=== PATIENT | male | born 1985 | race Caucasian/White ===

== ENCOUNTER 2019-09-06 14:19 | Emergency (ER) | payer MEDICAID, SELFPAY ==
[2019-09-06 14:20] VITALS: BP 142/76; PULSE 78; RESP 16; TEMP 36.6; O2SAT 96; BMI 25.0
--- NOTE | 2019-09-06 14:31 | EKG12_ITS ---
Test Reason : Blood Pressure : / mmHG Vent. Rate : 066 BPM Atrial Rate : 066 BPM P-R Int : 138 ms QRS Dur : 080 ms QT Int : 390 ms P-R-T Axes : -01 055 052 degrees QTc Int : 408 ms Normal sinus rhythm Junctional ST depression, probably normal Borderline ECG Confirmed by JELLY MCGREGOR ([id number]), editorial specialist ESTHER CARBAJAL ([id number]) on 09/09/2019 2:12:05 PM Referred By: LIZET Confirmed By:JELLY MCGREGOR
--- NOTE | 2019-09-06 14:40 | ED.VIS.GEN ---
History of Present Illness Chief Complaint: Substance Abuse Informant: Patient Narrative: Patient is a 33-year-old male with a past medical history of hypertension, psychiatric disorder who presents to the emergency department for detox. He states that he has been clean over the past 3 years until 3 weeks ago whenever he restarted methamphetamines. He wanted to come off this so he started what he believes was fentanyl. He has gone through withdrawal and detox before in the past. It is been multiple years since he has had to do this. He states that he has been nauseous and not able to eat. He is not able to remember the last time that he has slept. He denies any thoughts of harming himself or anybody else. Denies any other coingestions with the fentanyl that he has been injecting. He denies any issues with alcohol. He does smoke cigarettes. Denies any marijuana use. He has not any fevers or chills. No tremor. He states that he has been picking at his skin and does feel itchy. He has multiple abrasions over his back. Last time patient used was this morning with the fentanyl. He states that he does feel anxious. He denies any other significant chest pain, shortness of breath or abdominal pain. No headaches or vision changes. Capacity - Capacity Assessment Tool Can the patient make a choice & communicate that choice?: Yes Can the patient understand benefits, risks and alternatives?: Yes Can the patient make a logical, rational choice?: Yes Is the choice the patient makes consistent w/ their values?: Yes Is there an impending, emergent risk to the patient?: No Past Medical History - Allergies and Home Meds Allergies/Adverse Reactions: Allergies No Known Allergies Allergy (Verified 09/06/19 17:11) Primary Care Physician: Care Physician,No Primary [Primary Care Provider] - Prior records reviewed: Yes Past Medical History: - - Hypertension Smoking Status: Current every day smoker Drugs: - - Methamphetamine and fentanyl Review of Systems All systems negative except as indicated General: Reports: Malaise. Denies: Chills, Fever, Sweats Eyes: Denies: Visual changes - bilaterally, Diplopia ENT: Denies: Rhinorrhea, Sore throat Cardiovascular: Denies: Chest pain, Palpitations Respiratory: Denies: Dyspnea, Cough, Dyspnea on exertion Gastrointestinal: Reports: Nausea, Vomiting. Denies: Abdominal pain, Diarrhea, Melena, Hematochezia Genitourinary: Denies: Dysuria, Hematuria, Frequency Musculoskeletal: Denies: Back pain, Extremity Pain Skin: Reports: Abrasions. Denies: Rash, Wounds Neurological: Denies: Headache, Weakness, Numbness Psych: Denies: Suicidal thoughts, Suicidal ideations Physical Exam Vital Signs/Narrative: Vital Signs Temp Pulse Resp BP Pulse Ox 09/06/19 14:20 97.8 F 78 16 142/76 H 96 Inital Vital Signs reviewed: Yes General: Well nourished, Well developed, No Acute Distress Head: Normocephalic, Atraumatic Eyes: Perrl, EOMI ENT: Moist mucous membranes, No rhinorrhea Neck: Supple, Nontender Cardiovascular: Regular rate, Regular rhythm, No murmurs Respiratory: No distress, CTA bilaterally, Chest nontender Abdomen: Soft, Nontender, Nondistended, Normal bowel sounds Back: Nontender, Normal Inspection Extremities: Nontender, No edema Skin: Normal color, Rash - Multiple areas of superficial abrasion where the patient appears to have been scratching himself on the back. Neurological: Alert, Oriented x3, Cranial nerves II-XII grossly intact, Normal Strength, Normal Sensation Psychological: Normal affect, Normal Mood Diagnostic/Tx/Re-eval - Rhythm Strip Rhythm Strip: Sinus Rhythm - Ventricular rate of 66 bpm in sinus rhythm. Normal intervals. Normal axis. No ST elevations or depressions appreciated. No T wave abnormalities. No prior EKG for comparison. - Medical Decision Making Patient presents the emerge department to detox from fentanyl. He was using the fentanyl to come off of methamphetamine. Denies any suicidal or homicidal ideation. Will obtain basic lab work and plan on admission for detoxification. Patient otherwise stable throughout ED stay. Vital signs are within normal limits and physical exam is benign. Patient's medical screening lab work was currently pending. The patient's girlfriend apparently brought a book but had drugs in it. At that time the police were called. Patient became very agitated that the police came and questioned him in the room. He states that he no longer wants to stay. Since the patient came under his own volition and is currently denying any suicidal or homicidal ideation. I do not have any means to keep the patient against his will. He states that he will think about coming back. Patient left prior to work-up being completed. ED Disposition - Plan for ED Patient: Disposition: Home or Assisted Living Diagnosis: Substance abuse Referrals: Care Physician,No Primary [Primary Care Provider] -
--- NOTE | 2019-09-06 15:20 | ED.RN ---
pt walked outside with gf to give her stuff that is in his vehicle. pt has been gone for at least 10 minutes.
--- NOTE | 2019-09-06 15:36 | ED.RN ---
pt returned to room but is currently on phone speaking with someone. difficult to continue care of this pt, he insists on being on the phone.
[2019-09-06 16:03] LABS: Absolute Lymphocyte Count 1.62 X10^3/uL (0.83-4.51); Absolute Neutrophil Count 7.1 X10^3/uL (2.0-7.7); Basophil# 0.03 X10^3/uL; Basophil% 0.3 % (0-1); Eosinophil# 0.29 X10^3/uL; Eosinophils% 2.8 % (0-5); Hematocrit 41.6 % (40-54); Hemoglobin 14.9 g/dL (13.0-16.5); Lymphocyte # 1.62 X10^3/ul (4.0); Lymphocyte % 15.8 % (19-41); Mean Corp Hgb Conc 35.8 g/dL (32-36); Mean Corpuscular Hgb 31.6 pg (27.0-32.0); Mean Corpuscular Volume 88.1 fL (80-94); Mean Platelet Vol. 9.3 fl (6.2-12.0); Monocyte# 1.19 X10^3/uL; Monocyte% 11.6 % (0-10); NRBC Flagged by Analyzer 0 % (0-5); Neutrophil # 7.08 X10^3/uL (2.7-7.7); Neutrophil % 69.2 % (47-70); Platelet Count 143 K/mm3 (150-450); RBC Distribution Width CV 11.9 % (11.6-14.6); RBC Distribution Width SD 38.4 fl (35.1-43.9); Red Blood Count 4.72 M/mm3 (4.6-6.2); White Blood Count 10.2 K/mm3 (4.4-11.0)
[2019-09-06 16:25] LABS: Amphetamine Urine VISTA NEGATIVE (<1000 ng/mL); Barbiturate Urine VISTA NEGATIVE (< 200 ng/mL); Benzodiazepine Urine VISTA NEGATIVE (< 200 ng/mL); Cocaine Urine VISTA NEGATIVE (< 300 ng/mL); Ecstacy Urine VISTA POSITIVE (< 500 ng/mL); Methadone Urine VISTA NEGATIVE (< 300 ng/mL); PCP Urine VISTA NEGATIVE (< 25 ng/mL); THC Urine VISTA NEGATIVE (< 50 ng/mL); Vista UDS pH Range 5
[2019-09-06 16:25] LABS: Alcohol, Blood (Medical)-Serum < 3.0 mg/dL
[2019-09-06 16:47] LABS: ALB/GLOB Ratio 1.2 RATIO (0.9-2.4); AST(SGOT) 66 U/L (15-37); Alanine Aminotransfer ALT/SGPT 70 U/L (16-61); Alkaline Phosphatase 96 U/L (45-117); Anion Gap 11 (5-15); BUN 17 mg/dL (7-18); BUN/Creat Ratio 15.7 RATIO (10-20); Calcium,Total 8.9 mg/dL (8.5-10.1); Chloride 98 mmol/L (98-107); Creatinine, Serum 1.08 mg/dL (0.70-1.30); EST Glomerular Filtration Rate 84 mL/min (>60); Est Glom Filt Rate - Afr Amer 101 mL/min (>60); Estimated Creatinine Clearance 91.81 ml/min; Globulin 3.4 g/dL (2.2-4.2); Glucose 105 mg/dL (74-106); Potassium 3.5 mmol/L (3.5-5.1); Protein, Total 7.4 g/dL (6.4-8.2); Sodium Level 135 mmol/L (136-145)
--- NOTE | 2019-09-06 18:09 | ED.RN ---
Patient refused to be admitted. Physician notified and talked with patient. Patient still chose to leave.
== END 2019-09-06 17:50 | disposition home or self-care (01) ==
PROVIDERS: Emergency Provider Emergency Medicine
DX: F11.10 Opioid abuse, uncomplicated (principal); F17.210 Nicotine dependence, cigarettes, uncomplicated; I10 Essential (primary) hypertension; Z79.899 Other long term (current) drug therapy
CPT/HCPCS: 80053; 80307; 80320; 84484; 85025; 93005; 99285; J7050; A4216; G0480

== ENCOUNTER 2019-09-13 15:37 | Emergency (ER) | payer MEDICAID, SELFPAY ==
[2019-09-13 15:39] VITALS: BP 133/57; PULSE 73; RESP 16; TEMP 35.5; O2SAT 97; BMI 25.0
--- NOTE | 2019-09-13 15:58 | EKG12_ITS ---
Test Reason : DYSRHYTHMIA Blood Pressure : / mmHG Vent. Rate : 068 BPM Atrial Rate : 068 BPM P-R Int : 142 ms QRS Dur : 104 ms QT Int : 392 ms P-R-T Axes : 000 061 048 degrees QTc Int : 416 ms Normal sinus rhythm Normal ECG Confirmed by ERNESTO SARMIENTO, SRINI ([id number]), map editor ESTHER CARBAJAL ([id number]) on 09/16/2019 8:19:06 AM Referred By: Confirmed By:SRINI OROZCO MD
--- NOTE | 2019-09-13 15:59 | ED.VIS.GEN ---
History of Present Illness Chief Complaint: Substance Abuse Informant: Patient Narrative: Patient states for the past month he has been using fentanyl. He states he uses over a gram a day and tries to use it as often as possible. He reports his girlfriend overdosed last night and gave her CPR. He states that he wishes to do detox today. Patient's previous visit on 05 September was reviewed. Patient notes feelings of restlessness vomiting and diarrhea. He notes a slight headache. He notes a cough and some shortness of breath. He notes he is a smoker and chronically has a cough but it seems worse today. No reported fevers. He notes an area of redness on his left lower anterior mid leg which he states began after an abrasion last night. He also notes an area on his right hand where he injected last night and wonders if he missed the vein. Since starting to use fentanyl again he states he has not been working. He denies any suicidal homicidal ideation. He notes a history of bipolar disorder. He states that any medications he is taking is left over from a prior hospitalization. He takes lisinopril for hypertension. Capacity - Capacity Assessment Tool Can the patient make a choice & communicate that choice?: Yes Can the patient understand benefits, risks and alternatives?: Yes Can the patient make a logical, rational choice?: Yes Is the choice the patient makes consistent w/ their values?: Yes Is there an impending, emergent risk to the patient?: No Does the patient have an Advance Directive?: No Is there a Surrogate Available?: No i.e. HCPOA: No i.e. close relative (spouse, child, parent, sibling)?: No Past Medical History - Allergies and Home Meds Allergies/Adverse Reactions: Allergies Penicillins [PCN] Allergy (Verified 09/13/19 15:39) Hives Sulfa (Sulfonamide Antibiotics) Allergy (Verified 09/13/19 15:39) Hives Smoking Status: Heavy Smoker (>10/day) Review of Systems General: Reports: Malaise. Denies: Chills, Fever, Sweats Eyes: Denies: Visual changes - bilaterally, Diplopia ENT: Denies: Rhinorrhea, Sore throat Cardiovascular: Denies: Chest pain, Palpitations Respiratory: Reports: Dyspnea, Cough, Sputum, Dyspnea on exertion Gastrointestinal: Reports: Nausea, Vomiting, Diarrhea. Denies: Abdominal pain, Melena, Hematochezia Genitourinary: Denies: Dysuria, Hematuria, Frequency Musculoskeletal: Reports: Myalgias. Denies: Back pain, Extremity Pain Skin: Denies: Rash, Wounds Neurological: Reports: Headache. Denies: Weakness, Numbness Psych: Denies: Suicidal thoughts, Suicidal ideations Physical Exam Vital Signs/Narrative: Vital Signs Temp Pulse Resp BP Pulse Ox 09/13/19 15:39 96 F L 73 16 133/57 H 97 General: Well nourished, Well developed, No Acute Distress Head: Normocephalic, Atraumatic Eyes: Perrl, EOMI ENT: Moist mucous membranes, No rhinorrhea Neck: Supple, Nontender Cardiovascular: Regular rate, Regular rhythm, No murmurs Respiratory: No distress, CTA bilaterally, Chest nontender Abdomen: Soft, Nontender, Nondistended, Normal bowel sounds Back: Nontender, Normal Inspection Extremities: Nontender, No edema Skin: Normal color, - - There is an area of cellulitis on the mid left anterior leg. There is a small abrasion noted in this area. There is also recent injection site on the right hand. This does not appear to be secondarily infected or abscessed. Neurological: Alert, Oriented x3, Cranial nerves II-XII grossly intact, Normal Strength, Normal Sensation Psychological: Normal affect, Normal Mood Diagnostic/Tx/Re-eval - EKG Initial EKG Interpretation: Sinus Rhythm - EKG demonstrates a normal sinus rhythm at a rate of 68 without ectopy or concerning features of ACS - Medical Decision Making Patient has been very difficult since his arrival and even before his arrival. Nursing tells me that he called up here and cursed them out on the phone. He is attempting to pick and choose what nurses he has care for him. He does not wish to comply with the no cell phone role as part of the detox policy. Despite telling me he is not working for over a month he tells me he has to have a cell phone because he is negotiating a deal with thousands of dollars that will occur on Monday. He stated that he cannot have a COVID swab despite having cough and shortness of breath and wanting to be admitted to the hospital because he has sores in his nose. I was informed that the patient has eloped from the emergency department. Reportedly did not wish to stay and speak with me. ED Disposition - Plan for ED Patient: Diagnosis: Opiate addiction, Left leg cellulitis
--- NOTE | 2019-09-13 16:39 | ED.RN ---
I entered patients room draw blood. after assessing and identified a location patient stated that won't work. it's not even a vain. at that time i asked the patient where I could draw blood. pt stated i don't know. 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 at this point I went to the other side of the bed to evaluate other arm of a blood draw. after identifying a location and cleaning the site patient stated that won't work. that vain has crystalized from crystal meth. the patient was informed that in order for him to receive treatment we needed to draw blood. at this point pt was given time to warm up and reparatory attempted to obtain a reparatory specimen. pt refuse to allow respritory swab. er doctor called to room and made an explanation that pt would no be admitted with test could not be obtained. pt then request a new RN. propellant charge loader made aware. jaison ochoa rn [id number]
[2019-09-13 16:49] LABS: Absolute Lymphocyte Count 1.55 X10^3/uL (0.83-4.51); Absolute Neutrophil Count 6.1 X10^3/uL (2.0-7.7); Basophil# 0.04 X10^3/uL; Basophil% 0.5 % (0-1); Eosinophil# 0.38 X10^3/uL; Eosinophils% 4.3 % (0-5); Hematocrit 42.7 % (40-54); Hemoglobin 14.7 g/dL (13.0-16.5); Lymphocyte # 1.55 X10^3/ul (4.0); Lymphocyte % 17.5 % (19-41); Mean Corp Hgb Conc 34.4 g/dL (32-36); Mean Corpuscular Hgb 31.7 pg (27.0-32.0); Mean Corpuscular Volume 92.2 fL (80-94); Monocyte# 0.76 X10^3/uL; Monocyte% 8.6 % (0-10); NRBC Flagged by Analyzer 0 % (0-5); Neutrophil # 6.09 X10^3/uL (2.7-7.7); Neutrophil % 68.8 % (47-70); Platelet Count 146 K/mm3 (150-450); RBC Distribution Width CV 13.1 % (11.6-14.6); RBC Distribution Width SD 43.1 fl (35.1-43.9); Red Blood Count 4.63 M/mm3 (4.6-6.2); White Blood Count 8.9 K/mm3 (4.4-11.0)
[2019-09-13 16:57] LABS: Prothrombin Time (Protime)PT. 12.9 SECONDS (11.7-14.9)
[2019-09-13 16:58] LABS: Partial Thromboplast Time 30.8 Seconds (24.1-36.2)
--- NOTE | 2019-09-13 17:03 | ED.RN ---
THIS NURSE IN THE ROOM TO SPEAK WITH PT ABOUT THE RAMP PROGRAM. THIS NURSE READ THE VOLUNTARY AGREEMENT TO THE PATIENT WORD FOR WORK. THE PT AGREED TO THE CONTRACT AND SIGNED THE CONTRACT THEN STATED WELL I WILL HAVE MY CELL PHONE ON MONDAY BECAUSE I HAVE A VERY IMPORTANT EMAIL I HAVE TO SEE. IT IS WORTH THOUSANDS OF DOLLARS. THIS NURSE EXPLAINED TO THE PT THAT HE WILL NOT BE PERMITTED TO HAVE HIS CELL PHONE BUT I WOULD CONTACT THE CHARGE NURSE ON THAT FLOOR. THE PT STATES DON'T BOTHER. I WILL DEAL WITH IT WHEN I GET UP THERE. THEY WILL LET ME DO IT. I'LL TELL THEM. THIS NURSE CONTACTED THE CHARGE NURSE ON MS3 SIA, CONFIRMED THAT THE PT WILL NOT BE PERMITTED TO HAVE HIS CELL PHONE ON MONDAY TO CHECK HIS EMAIL. WHEN THIS NURSE RETURNED TO THE ROOM TO INFORM HIM THAT I SPOKE WITH THE CHARGE NURSE ABOUT THE RULE AND HE WOULD NOT BE PERMITTED TO HAVE HIS PHONE ON MONDAY THE PT BECAME VERY ANGRY AND ARGUMENTATIVE WITH THIS NURSE. THE PT STATES YOU HAD NO RIGHT TO DISCUSS THIS INFORMATION. THIS IS MY INFORMATION AND YOU HAVE NO RIGHT. I AM A 33 YEAR OLD MAN. YOU HAVE NO RIGHT. WHO DO YOU THINK THAT YOU ARE?. THIS NURSE AGAIN TRIED TO EXPLAIN TO THE PT THE RULE AND THE REASONING BEHIND THE RULE. THE PT CONTINUED TO RAISE HIS VOICE AND BECAME MORE ARGUMENTATIVE. THIS PT YELLING AT THIS NURSE. AT THIS POINT, CAKE FROSTER AND [employer]EN WERE IN THE DEPARTMENT. THE CAKE FROSTER INFORMED THE PT THAT HE WILL NOT RAISE HIS VOICE AND ARGUE WITH THE STAFF. THIS NURSE WALKED OUT OF THE ROOM AND NOTIFIED THE CHARGE NURSE ON MS3 OF THE INCIDENT. SHE REQUEST THAT THE HOSPITALIST SPEAK WITH THE PT WHEN THEY ARE CONTACTED. THIS NURSE SPOKE WITH THE CAKE FROSTER AND UPDATED HER ON THE PLAN
[2019-09-13 17:19] LABS: AST(SGOT) 40 U/L (15-37); Alanine Aminotransfer ALT/SGPT 46 U/L (16-61); Albumin, Serum 3.5 g/dL (3.2-5.0); Alkaline Phosphatase 103 U/L (45-117); Anion Gap 8 (5-15); BUN 16 mg/dL (7-18); BUN/Creat Ratio 16.1 RATIO (10-20); Calcium,Total 8.6 mg/dL (8.5-10.1); Chloride 101 mmol/L (98-107); EST Glomerular Filtration Rate 92 mL/min (>60); Est Glom Filt Rate - Afr Amer 111 mL/min (>60); Estimated Creatinine Clearance 99.15 ml/min; Globulin 3.4 g/dL (2.2-4.2); Glucose 80 mg/dL (74-106); Potassium 3.8 mmol/L (3.5-5.1); Protein, Total 6.9 g/dL (6.4-8.2); Sodium Level 137 mmol/L (136-145)
== END 2019-09-13 18:18 | disposition home or self-care (01) ==
PROVIDERS: Emergency Provider Emergency Medicine
DX: F11.20 Opioid dependence, uncomplicated (principal); L03.116 Cellulitis of left lower limb; I10 Essential (primary) hypertension; F17.200 Nicotine dependence, unspecified, uncomplicated; Z79.899 Other long term (current) drug therapy
CPT/HCPCS: 36415; 80053; 80320; 85025; 85610; 85730; 87635; 93005; 94799; 99281; G2023; G0480; U0003